=== PATIENT | male | born 1950 | race Hispanic/Latino ===

== ENCOUNTER 2020-07-16 14:30 | Outpatient (CLI) | payer BC | END 2020-07-16 14:31 | disposition home or self-care (01) | LOC: LABBT 14:30 | PROVIDERS: ATTEND Urology | DX: Z01.818 Encounter for other preprocedural examination (principal); N40.1 Benign prostatic hyperplasia with lower urinary tract symptoms; N48.6 Induration penis plastica; N48.89 Other specified disorders of penis; Z12.5 Encounter for screening for malignant neoplasm of prostate; R35.1 Nocturia; N32.3 Diverticulum of bladder; Z20.822 Contact with and (suspected) exposure to COVID-19; I10 Essential (primary) hypertension | CPT/HCPCS: 80048; 81001; 85027; 85610; 85730; 86850; 86900; 86901; 87086; 87635; 93005; 93010; U0003; U0005 ==

== ENCOUNTER 2020-07-21 06:23 | Day surgery (SDC) | payer BC ==
[2020-07-16 15:09] LABS: Bilirubin Neg (Negative); Blood, Urine Negative (Negative); Clarity Clear (Clear); Glucose, Urine (Dipstick) Normal (Negative); Ketone, Urine Negative (Negative); Leukocyte Negative (Negative); Nitrite Negative (Negative); Protein, Urine (Dipstick) Negative (Neg-Trace); Specific Gravity, Urine 1.015 (1.002-1.036); Urobilinogen Normal mg/dL (Less than 2)
[2020-07-16 15:14] LABS: Hemoglobin 15.6 g/dL (13.5-17.5); Mean Corpuscular HGB CONC 33.5 g/dL (32.0-36.0); Mean Corpuscular Hemoglobin 30.7 pg (27.0-33.0); Mean Corpuscular Volume 91.7 fl (81.2-95.1); Mean Platelet Volume 10.4 fl (7.4-10.4); Platelet Count 250 10x3/uL (150-450); RBC Distribution Width 13.1 % (11.5-14.5); Red Blood Cell (RBC) Count 5.08 10x6/uL (4.32-5.72); White Blood Cell (WBC) Count 7.4 10x3/uL (3.5-10.5)
[2020-07-16 15:31] LABS: Bacteria/HPF Rare-Few HPF (None Seen); RBC/HPF 0-3 HPF (0-3); Squamous Epithelial 0-3 HPF (0-3); WBC/HPF 0-3 HPF (0-3)
[2020-07-16 15:33] LABS: PTT 26.2 sec (22.0-33.0); Prothrombin Time 10.8 sec (9.5-12.1)
[2020-07-16 15:39] LABS: Anion Gap 15 mmol/L (10-20); BUN (Urea Nitrogen) 14 mg/dL (8.4-25.7); Calc. Creatinine Clearance 0 mL/min (70-130); Calcium 9.7 mg/dL (7.8-10.44); Carbon Dioxide 26 mmol/L (23-31); Chloride 101 mmol/L (98-107); Glucose 107 mg/dL (80-115); Sodium 137 mmol/L (136-145)
[2020-07-17 04:13] LABS: SARS-CoV-2 PCR by NAA Not Detected (NotDetected)
[2020-07-18 13:13] VITALS: BMI 28.3
[2020-07-21] MEDS ORDERED: Levofloxacin 500 mg/D5W 100 ml Premix Bag ONE (07:30)
[2020-07-21] MEDS ORDERED: Fentanyl 100 MCG/2 ML VIAL ONE ×2 (08:36→12:33)
[2020-07-21] MEDS ORDERED: Iothalamate Meglumine 60% 50 ML VIAL FS ONE (08:40)
[2020-07-21] MEDS ORDERED: Rocuronium Bromide 10 MG/ML (10ML VIAL) ONE (08:52)
[2020-07-21] MEDS ORDERED: Lidocaine 1% PF 5 ML VIAL ONE (08:52)
[2020-07-21] MEDS ORDERED: Glycopyrrolate 0.2 MG/ML 5 ML SYRINGE ONE (08:52)
[2020-07-21] MEDS ORDERED: PHENYLEPHRINE-NS 100 MCG/ML 10 ML SYRINGE ONE (08:52)
[2020-07-21] MEDS ORDERED: PROPOFOL 200 MG/20 ML VIAL ONE (08:52)
[2020-07-21] MEDS ORDERED: Ondansetron PF 4 MG/2 ML Vial ONE (08:52)
[2020-07-21] MEDS ORDERED: Esmolol 100 MG/10 ML VIAL ONE (08:52)
[2020-07-21] MEDS ORDERED: Promethazine HCl 25 MG/ML VIAL SLOW IVP PRN (09:05)
[2020-07-21] MEDS ORDERED: Ondansetron HCl/PF 4 MG/2 ML Vial IVP PRN (09:05)
[2020-07-21] MEDS ORDERED: Promethazine HCl 25 MG/ML VIAL IM PRN (09:05)
[2020-07-21] MEDS ORDERED: B & O ONE (10:12)
[2020-07-21] MEDS ORDERED: Acetaminophen 500 MG TAB PO PRN (11:37)
[2020-07-21] MEDS ORDERED: Zolpidem Tartrate 5 MG TAB PO PRN (11:37)
[2020-07-21] MEDS ORDERED: HYDROcodone/Acetaminophen 5/325 mg Tablet PO PRN ×2 (11:37)
[2020-07-21] MEDS ORDERED: Mag-Al 1200 mg/1200 mg/30 ML UDCUP PO PRN (11:37)
[2020-07-21] MEDS ORDERED: hydrALAZINE 20 MG/ML VIAL SLOW IVP PRN ×2 (11:37)
[2020-07-21] MEDS ORDERED: diphenhydrAMINE 50 MG/ML VIAL IVP PRN (11:37)
[2020-07-21] MEDS ORDERED: Phenazopyridine HCl 97.5 MG TABLET PO PRN (11:37)
[2020-07-21 13:02] LABS: #Eosinphils 0.2 thou/uL (0.0-0.7); #Lymphocytes 1.3 thou/uL (1.20-3.40); #Monocytes 0.5 thou/uL (0.11-0.59); #Neutrophils 6.2 thou/uL (1.40-6.50); %Basophils 0.3 % (0.0-1.0); %Lymphocytes 15.9 % (21.0-51.0); %Monocytes 5.5 % (0.0-10.0); %Neutrophils 76.3 % (42.0-75.0); Hemoglobin 14.9 g/dL (14.0-18.0); Mean Corpuscular HGB CONC 32.7 g/dL (32.0-36.0); Mean Corpuscular Hemoglobin 31.3 pg (27.0-31.0); Mean Corpuscular Volume 95.6 fL (78.0-98.0); Platelet Count 205 thou/uL (130-400); RBC Distribution Width 12.5 % (11.5-14.5); Red Blood Cell (RBC) Count 4.76 mill/uL (4.70-6.10); White Blood Cell (WBC) Count 8.2 thou/uL (4.8-10.8)
[2020-07-21 13:26] LABS: Anion Gap 13 mmol/L (10-20); BUN (Urea Nitrogen) 13 mg/dL (8.4-25.7); Calc. Creatinine Clearance 96 mL/min (70-130); Calcium 8.8 mg/dL (7.8-10.44); Carbon Dioxide 23 mmol/L (23-31); Chloride 104 mmol/L (98-107); Glucose 105 mg/dL (80-115); Potassium 4.5 mmol/L (3.5-5.1); Sodium 135 mmol/L (136-145)
[2020-07-21] MEDS: Sodium Chloride 0.9% 1,000 ML IV SCH (20:45)
[2020-07-21] MEDS: Famotidine/PF 20 mg/2ml Vial SLOW IVP SCH (20:46)
[2020-07-21] MEDS: Docusate 100 MG CAP PO SCH (20:46)
[2020-07-22] MEDS: Sodium Chloride 0.9% 1,000 ML IV SCH (05:55)
[2020-07-22 06:14] LABS: #Eosinphils 0.2 thou/uL (0.0-0.7); #Lymphocytes 1.3 thou/uL (1.20-3.40); #Monocytes 0.9 thou/uL (0.11-0.59); #Neutrophils 6.1 thou/uL (1.40-6.50); %Basophils 0.3 % (0.0-1.0); %Eosinophils 2.4 % (0.0-10.0); %Lymphocytes 14.9 % (21.0-51.0); %Monocytes 10.2 % (0.0-10.0); %Neutrophils 72.1 % (42.0-75.0); Hemoglobin 13.4 g/dL (14.0-18.0); Mean Corpuscular HGB CONC 32.2 g/dL (32.0-36.0); Mean Corpuscular Hemoglobin 30.7 pg (27.0-31.0); Mean Corpuscular Volume 95.4 fL (78.0-98.0); Platelet Count 199 thou/uL (130-400); RBC Distribution Width 12.7 % (11.5-14.5); Red Blood Cell (RBC) Count 4.37 mill/uL (4.70-6.10); White Blood Cell (WBC) Count 8.4 thou/uL (4.8-10.8)
[2020-07-22 06:34] LABS: Anion Gap 11 mmol/L (10-20); BUN (Urea Nitrogen) 11 mg/dL (8.4-25.7); Calc. Creatinine Clearance 95 mL/min (70-130); Calcium 8.4 mg/dL (7.8-10.44); Carbon Dioxide 23 mmol/L (23-31); Chloride 106 mmol/L (98-107); Glucose 99 mg/dL (80-115); Sodium 136 mmol/L (136-145)
[2020-07-22] MEDS ORDERED: cefTRIAXone\\ROCEPHIN 1 GM in Sodium Chloride 0.9% 100 ML IVPB SCH (07:00)
[2020-07-22] MEDS: Famotidine/PF 20 mg/2ml Vial SLOW IVP SCH (08:24)
[2020-07-22] MEDS: Tamsulosin HCl 0.4 MG CAP PO SCH ×2 (08:24→13:25)
[2020-07-22] MEDS: Docusate 100 MG CAP PO SCH (08:24)
[2020-07-22] MEDS ORDERED: Tamsulosin HCl 0.4 MG CAP PO SCH (09:00)
[2020-07-22] MEDS ORDERED: Dutasteride 0.5 MG CAP PO SCH (09:00)
[2020-07-22] MEDS ORDERED: Loratadine/Pseudoephedrine 10/240 mg Tablet PO SCH (09:00)
[2020-07-22] MEDS ORDERED: Lisinopril 10 MG TAB PO SCH (09:00)
[2020-07-22 11:25] VITALS: BP 147/71; TEMP 98
== END 2020-07-22 13:35 | disposition home or self-care (01) ==
LOC: SDC 06:23 → SURG A 11:42 → SDC 07-22 13:35
PROVIDERS: ATTEND Urology
PROC: 0VT08ZZ Resection of Prostate, Via Natural or Artificial Opening Endoscopic (ICD-10-PCS; principal; 2020-07-22)
DX: N40.1 Benign prostatic hyperplasia with lower urinary tract symptoms (principal); R35.1 Nocturia; N32.3 Diverticulum of bladder; I10 Essential (primary) hypertension; Z79.899 Other long term (current) drug therapy
CPT/HCPCS: 36415; 80048; 81001; 85025; 85027; 85610; 85730; 86850; 86900; 86901; 87086; 87635; 88305; J0696; J1956; J2405; J2704; J3010; J3490; Q9961; S0028; U0003; U0005

== ENCOUNTER 2022-03-30 09:23 | Emergency (ER) | payer BC ==
[2022-03-30 10:14] LABS: PTT 29.9 sec (22.9-36.1); Prothrombin Time 13.1 sec (12.0-14.7)
[2022-03-30 10:15] LABS: #Eosinphils 0.3 thou/uL (0.0-0.7); #Monocytes 0.8 thou/uL (0.11-0.59); #Neutrophils 4.8 thou/uL (1.40-6.50); %Basophils 0.3 % (0.0-1.0); %Eosinophils 3.6 % (0.0-10.0); %Lymphocytes 25.6 % (21.0-51.0); %Monocytes 9.8 % (0.0-10.0); %Neutrophils 60.6 % (42.0-75.0); Hemoglobin 16.8 g/dL (14.0-18.0); Mean Corpuscular HGB CONC 33.2 g/dL (32.0-36.0); Mean Corpuscular Hemoglobin 31.5 pg (27.0-31.0); Mean Platelet Volume 7.9 fL (7.4-10.4); Platelet Count 260 10x3/uL (130-400); RBC Distribution Width 12.2 % (11.5-14.5); Red Blood Cell (RBC) Count 5.32 mill/uL (4.70-6.10); White Blood Cell (WBC) Count 7.9 10x3/uL (4.8-10.8)
[2022-03-30 10:21] LABS: ALT (SGPT) 24 U/L (8-55); AST (SGOT) 20 U/L (5-34); Albumin 4.2 g/dL (3.4-4.8); Alkaline Phosphatase 78 U/L (40-110); Anion Gap 12 mmol/L (10-20); BUN (Urea Nitrogen) 15 mg/dL (8.4-25.7); Bilirubin, Total 0.6 mg/dL (0.2-1.2); Calc. Creatinine Clearance 0 mL/min (70-130); Calcium 9.9 mg/dL (7.8-10.44); Carbon Dioxide 28 mmol/L (23-31); Chloride 99 mmol/L (98-107); Estimated GFR 81; Globulin 3.8 g/dL (2.4-3.5); Glucose 117 mg/dL (83-110); Sodium 135 mmol/L (136-145)
[2022-03-30 10:47] LABS: Clarity Hazy (Clear)
[2022-03-30 10:49] LABS: Specific Gravity, Urine 1.005 (1.002-1.036)
[2022-03-30 10:50] LABS: Bilirubin Unable to Interpret (Negative); Blood, Urine Unable to Interpret (Negative); Glucose, Urine (Dipstick) Unable to Interpret mg/dL (Negative); Ketone, Urine Unable to Interpret mg/dL (Negative); Leukocyte Unable to Interpret Leu/uL (Negative); Nitrite Unable to Interpret (Negative); Protein, Urine (Dipstick) Unable to Interpret mg/dL (Neg-Trace); Urobilinogen UNABLE TO INTERPRET mg/dL (Less than 2); pH, Urine 5.7 (5.0-9.0)
[2022-03-30 10:52] LABS: Bacteria/HPF 1+ HPF (None Seen); Squamous Epithelial None Seen HPF (0-3)
== END 2022-03-30 12:01 | disposition home or self-care (01) ==
LOC: ERS 09:23
DX: R31.9 Hematuria, unspecified (principal); N40.1 Benign prostatic hyperplasia with lower urinary tract symptoms; I10 Essential (primary) hypertension; Z79.899 Other long term (current) drug therapy
CPT/HCPCS: 36415; 74176; 80053; 81003; 81015; 85025; 85610; 85730; 87086

== ENCOUNTER 2022-12-07 07:47 | Emergency (ER) | payer BC ==
[2022-12-07 08:42] LABS: #Eosinphils 0.2 thou/uL (0.0-0.7); #Monocytes 0.8 thou/uL (0.11-0.59); #Neutrophils 6.4 thou/uL (1.40-6.50); %Basophils 0.4 % (0.0-1.0); %Eosinophils 2.6 % (0.0-10.0); %Lymphocytes 17.4 % (21.0-51.0); %Monocytes 9.1 % (0.0-10.0); %Neutrophils 70.3 % (42.0-75.0); Hematocrit 45.3 % (42.0-52.0); Hemoglobin 15.2 g/dL (14.0-18.0); Mean Corpuscular HGB CONC 33.6 g/dL (32.0-36.0); Mean Corpuscular Hemoglobin 31.1 pg (27.0-31.0); Mean Corpuscular Volume 92.6 fl (78.0-98.0); Mean Platelet Volume 10.3 fL (7.4-10.4); Platelet Count 242 10x3/uL (130-400); RBC Distribution Width 13.2 % (11.5-14.5); Red Blood Cell (RBC) Count 4.89 mill/uL (4.70-6.10); White Blood Cell (WBC) Count 9.1 10x3/uL (4.8-10.8)
== END 2022-12-07 08:51 | disposition home or self-care (01) ==
LOC: ERS 07:47
DX: L08.9 Local infection of the skin and subcutaneous tissue, unspecified (principal); I10 Essential (primary) hypertension; Z79.899 Other long term (current) drug therapy
CPT/HCPCS: 36415; 85025

== ENCOUNTER 2022-12-08 14:47 | Emergency (ER) | payer BC ==
[2022-12-08] MEDS ORDERED: HYDROcodone/Acetaminophen 10/325 mg Tablet ONE (16:28)
[2022-12-08 18:07] LABS: #Eosinphils 0.1 thou/uL (0.0-0.7); #Neutrophils 7.3 thou/uL (1.40-6.50); %Basophils 0.2 % (0.0-1.0); %Eosinophils 1.1 % (0.0-10.0); %Lymphocytes 14.9 % (21.0-51.0); %Monocytes 9.6 % (0.0-10.0); %Neutrophils 73.8 % (42.0-75.0); Hematocrit 46.1 % (42.0-52.0); Hemoglobin 15.5 g/dL (14.0-18.0); Mean Corpuscular HGB CONC 33.6 g/dL (32.0-36.0); Mean Corpuscular Hemoglobin 31.2 pg (27.0-31.0); Mean Corpuscular Volume 92.8 fl (78.0-98.0); Mean Platelet Volume 10.2 fL (7.4-10.4); Platelet Count 261 10x3/uL (130-400); RBC Distribution Width 13.1 % (11.5-14.5); Red Blood Cell (RBC) Count 4.97 mill/uL (4.70-6.10); White Blood Cell (WBC) Count 9.9 10x3/uL (4.8-10.8)
[2022-12-08 18:23] LABS: ALT (SGPT) 23 U/L (8-55); AST (SGOT) 17 U/L (5-34); Albumin 4.1 g/dL (3.4-4.8); Alkaline Phosphatase 80 U/L (40-110); Anion Gap 12 mmol/L (10-20); BUN (Urea Nitrogen) 14 mg/dL (8.4-25.7); Bilirubin, Total 0.5 mg/dL (0.2-1.2); Calc. Creatinine Clearance 0 mL/min (70-130); Calcium 9.7 mg/dL (7.8-10.44); Carbon Dioxide 24 mmol/L (23-31); Chloride 102 mmol/L (98-107); Estimated GFR 86; Globulin 3.8 g/dL (2.4-3.5); Glucose 108 mg/dL (83-110); Lipase 38 U/L (8-78); Potassium 4.4 mmol/L (3.5-5.1); Protein, Total 7.9 g/dL (5.8-8.1); Sodium 134 mmol/L (136-145)
[2022-12-08] MEDS ORDERED: cefTRIAXone (ROCEPHIN) 1 GM VIAL ONE (18:37)
[2022-12-08] MEDS ORDERED: Lidocaine 1% MPF 2 ML VIAL ONE (18:37)
== END 2022-12-08 19:03 | disposition home or self-care (01) ==
LOC: ERS 14:47
DX: L03.116 Cellulitis of left lower limb (principal); I10 Essential (primary) hypertension; Z79.899 Other long term (current) drug therapy
CPT/HCPCS: 36415; 80053; 83605; 83690; 85025; 96372; 99283; J0696

== ENCOUNTER 2022-12-13 12:31 | Outpatient (CLI) | payer BC ==
[~2022-12-13 12:31] MED LIST: Magnevist 469MG/ML 20 ML VIAL ONE
== END 2022-12-13 12:32 | disposition home or self-care (01) ==
LOC: BICMRI 12:31
PROVIDERS: ATTEND Physician Assistant
DX: M79.672 Pain in left foot (principal); L03.116 Cellulitis of left lower limb; M86.9 Osteomyelitis, unspecified; M00.872 Arthritis due to other bacteria, left ankle and foot
CPT/HCPCS: A9579

== ENCOUNTER 2022-12-13 17:52 | Inpatient (IN) | payer MEDICARE, BC ==
[2022-12-13] MEDS ORDERED: Ketorolac Tromethamine 30 MG/ML VIAL ONE (19:52)
[2022-12-13] MEDS ORDERED: Cefepime 2 GM VIAL ONE (19:52)
[2022-12-13 20:19] LABS: #Eosinphils 0.2 thou/uL (0.0-0.7); #Neutrophils 5.8 thou/uL (1.40-6.50); %Basophils 0.4 % (0.0-1.0); %Eosinophils 2.7 % (0.0-10.0); %Lymphocytes 16.5 % (21.0-51.0); %Monocytes 11.8 % (0.0-10.0); %Neutrophils 68.4 % (42.0-75.0); Hematocrit 43.3 % (42.0-52.0); Hemoglobin 14.6 g/dL (14.0-18.0); Mean Corpuscular HGB CONC 33.7 g/dL (32.0-36.0); Mean Corpuscular Hemoglobin 30.7 pg (27.0-31.0); Mean Platelet Volume 9.7 fL (7.4-10.4); Platelet Count 317 10x3/uL (130-400); RBC Distribution Width 12.5 % (11.5-14.5); Red Blood Cell (RBC) Count 4.76 mill/uL (4.70-6.10); White Blood Cell (WBC) Count 8.4 10x3/uL (4.8-10.8)
[2022-12-13] MEDS ORDERED: Vancomycin 1.5 GRAM/300 ML BAG 1.5 GM in Premix Bag 1 BAG IVPB SCH (20:45)
[2022-12-13 20:48] LABS: ALT (SGPT) 19 U/L (8-55); AST (SGOT) 15 U/L (5-34); Albumin 3.8 g/dL (3.4-4.8); Alkaline Phosphatase 70 U/L (40-110); Anion Gap 14 mmol/L (10-20); BUN (Urea Nitrogen) 16 mg/dL (8.4-25.7); Bilirubin, Total 0.3 mg/dL (0.2-1.2); Calc. Creatinine Clearance 0 mL/min (70-130); Calcium 9.4 mg/dL (7.8-10.44); Carbon Dioxide 24 mmol/L (23-31); Chloride 102 mmol/L (98-107); Estimated GFR 83; Globulin 3.7 g/dL (2.4-3.5); Glucose 102 mg/dL (83-110); Potassium 4.5 mmol/L (3.5-5.1); Protein, Total 7.5 g/dL (5.8-8.1); Sodium 135 mmol/L (136-145)
[2022-12-13] MEDS ORDERED: Senokot S 8.6-50 MG TAB PO PRN (22:25)
[2022-12-13] MEDS ORDERED: Calcium Carbonate 500 MG ChewTAB PO PRN (22:25)
[2022-12-13] MEDS ORDERED: Acetaminophen 325 MG TAB PO PRN (22:25)
[2022-12-13] MEDS ORDERED: Ondansetron ODT 4 MG TAB PO PRN (22:25)
[2022-12-13] MEDS ORDERED: TETANUS, DIPHTHERIA TOX,ADULT (TDVAX) 0.5 ML VIAL IM ONE (22:27)
[2022-12-13 22:51] VITALS: BMI 28.3
[2022-12-14 05:57] LABS: #Eosinphils 0.2 thou/uL (0.0-0.7); #Monocytes 0.8 thou/uL (0.11-0.59); #Neutrophils 5.3 thou/uL (1.40-6.50); %Basophils 0.5 % (0.0-1.0); %Eosinophils 3.2 % (0.0-10.0); %Lymphocytes 15.4 % (21.0-51.0); %Monocytes 10.8 % (0.0-10.0); %Neutrophils 69.7 % (42.0-75.0); Hematocrit 40.8 % (42.0-52.0); Hemoglobin 13.7 g/dL (14.0-18.0); Mean Corpuscular HGB CONC 33.6 g/dL (32.0-36.0); Mean Corpuscular Hemoglobin 30.6 pg (27.0-31.0); Mean Corpuscular Volume 91.3 fl (78.0-98.0); Mean Platelet Volume 9.9 fL (7.4-10.4); Platelet Count 282 10x3/uL (130-400); RBC Distribution Width 12.7 % (11.5-14.5); Red Blood Cell (RBC) Count 4.47 mill/uL (4.70-6.10); White Blood Cell (WBC) Count 7.6 10x3/uL (4.8-10.8)
[2022-12-14] MEDS: HYDROcodone/Acetaminophen 5/325 mg Tablet PO PRN ×4 (06:12→19:50)
[2022-12-14 06:21] LABS: Anion Gap 10 mmol/L (10-20); BUN (Urea Nitrogen) 14 mg/dL (8.4-25.7); Calc. Creatinine Clearance 95 mL/min (70-130); Calcium 9.1 mg/dL (7.8-10.44); Carbon Dioxide 25 mmol/L (23-31); Chloride 105 mmol/L (98-107); Estimated GFR 93; Glucose 97 mg/dL (83-110); Potassium 4.4 mmol/L (3.5-5.1); Sodium 136 mmol/L (136-145)
[2022-12-14] MEDS ORDERED: Ondansetron PF 4 MG/2 ML Vial IVP PRN (08:11)
[2022-12-14] MEDS ORDERED: Non-Formulary Item 1 EACH (Omeprazole [Omeprazole] 20 MG Capsule.Dr) PO SCH (09:00)
[2022-12-14] MEDS ORDERED: Famotidine 20 MG TAB PO SCH (09:00)
[2022-12-14] MEDS: Lisinopril 10 MG TAB PO SCH (09:43)
[2022-12-14] MEDS ORDERED: VANCOMYCIN 1.75 GM/500 ML BAG 1.75 GM in Premix Bag 1 BAG IVPB SCH (18:00)
[2022-12-15 05:17] LABS: Hematocrit 39.8 % (42.0-52.0); Hemoglobin 13.5 g/dL (14.0-18.0); Mean Corpuscular HGB CONC 33.9 g/dL (32.0-36.0); Mean Corpuscular Hemoglobin 30.9 pg (27.0-31.0); Mean Corpuscular Volume 91.1 fl (78.0-98.0); Mean Platelet Volume 9.5 fL (7.4-10.4); Platelet Count 300 10x3/uL (130-400); RBC Distribution Width 12.3 % (11.5-14.5); Red Blood Cell (RBC) Count 4.37 mill/uL (4.70-6.10); White Blood Cell (WBC) Count 7.2 10x3/uL (4.8-10.8)
[2022-12-15 05:40] LABS: Anion Gap 11 mmol/L (10-20); BUN (Urea Nitrogen) 15 mg/dL (8.4-25.7); Calc. Creatinine Clearance 95 mL/min (70-130); Calcium 8.9 mg/dL (7.8-10.44); Carbon Dioxide 24 mmol/L (23-31); Chloride 102 mmol/L (98-107); Estimated GFR 93; Glucose 98 mg/dL (83-110); Potassium 4.2 mmol/L (3.5-5.1); Sodium 133 mmol/L (136-145)
[2022-12-15] MEDS: Dutasteride 0.5 MG CAP PO SCH (08:03)
[2022-12-15] MEDS: HYDROcodone/Acetaminophen 5/325 mg Tablet PO PRN ×3 (08:04→23:06)
[2022-12-15] MEDS: Lisinopril 10 MG TAB PO SCH (09:00)
[2022-12-15] MEDS: cefTRIAXone\\ROCEPHIN 2 GM in Sodium Chloride 0.9% 100 ML IVPB SCH (23:04)
[2022-12-16 05:28] LABS: #Eosinphils 0.3 thou/uL (0.0-0.7); #Monocytes 0.9 thou/uL (0.11-0.59); #Neutrophils 4.5 thou/uL (1.40-6.50); %Basophils 0.5 % (0.0-1.0); %Eosinophils 4.2 % (0.0-10.0); %Lymphocytes 23.9 % (21.0-51.0); %Monocytes 11.3 % (0.0-10.0); %Neutrophils 59.7 % (42.0-75.0); Hematocrit 41.8 % (42.0-52.0); Mean Corpuscular HGB CONC 33.5 g/dL (32.0-36.0); Mean Corpuscular Hemoglobin 30.7 pg (27.0-31.0); Mean Corpuscular Volume 91.7 fl (78.0-98.0); Mean Platelet Volume 9.6 fL (7.4-10.4); Platelet Count 306 10x3/uL (130-400); RBC Distribution Width 12.4 % (11.5-14.5); Red Blood Cell (RBC) Count 4.56 mill/uL (4.70-6.10); White Blood Cell (WBC) Count 7.6 10x3/uL (4.8-10.8)
[2022-12-16 05:43] LABS: Vancomycin, Trough 3.5 ug/mL
[2022-12-16 05:45] LABS: Anion Gap 10 mmol/L (10-20); BUN (Urea Nitrogen) 18 mg/dL (8.4-25.7); Calc. Creatinine Clearance 87 mL/min (70-130); Calcium 9.1 mg/dL (7.8-10.44); Carbon Dioxide 27 mmol/L (23-31); Chloride 102 mmol/L (98-107); Estimated GFR 91; Glucose 98 mg/dL (83-110); Potassium 4.3 mmol/L (3.5-5.1); Sodium 135 mmol/L (136-145)
[2022-12-16] MEDS: Vancomycin 1 GM in Premix Bag 1 BAG IVPB SCH ×2 (06:27→18:24)
[2022-12-16] MEDS: HYDROcodone/Acetaminophen 5/325 mg Tablet PO PRN ×2 (06:34→14:47)
[2022-12-16] MEDS ORDERED: metroNIDAZOLE 500 MG TAB PO SCH (07:00)
[2022-12-16] MEDS ORDERED: Vancomycin HCl 750 MG in Sodium Chloride 0.9% 250 ML 250 ML IVPB SCH (08:00)
[2022-12-16] MEDS: Dutasteride 0.5 MG CAP PO SCH (09:32)
[2022-12-16] MEDS: metroNIDAZOLE 500 MG TAB PO SCH ×3 (09:32→20:11)
[2022-12-16] MEDS: Lisinopril 10 MG TAB PO SCH (09:33)
[2022-12-16] MEDS: Losartan 25 MG TAB PO SCH (10:49)
[2022-12-16] MEDS: cefTRIAXone\\ROCEPHIN 2 GM in Sodium Chloride 0.9% 100 ML IVPB SCH (23:39)
[2022-12-17] MEDS: HYDROcodone/Acetaminophen 5/325 mg Tablet PO PRN ×3 (00:19→14:58)
[2022-12-17 05:55] LABS: #Eosinphils 0.4 thou/uL (0.0-0.7); #Monocytes 0.9 thou/uL (0.11-0.59); #Neutrophils 4.6 thou/uL (1.40-6.50); %Basophils 0.4 % (0.0-1.0); %Lymphocytes 22.3 % (21.0-51.0); %Monocytes 11.3 % (0.0-10.0); %Neutrophils 60.9 % (42.0-75.0); Hematocrit 40.3 % (42.0-52.0); Hemoglobin 13.6 g/dL (14.0-18.0); Mean Corpuscular HGB CONC 33.7 g/dL (32.0-36.0); Mean Corpuscular Hemoglobin 30.6 pg (27.0-31.0); Mean Corpuscular Volume 90.8 fl (78.0-98.0); Mean Platelet Volume 9.7 fL (7.4-10.4); Platelet Count 320 10x3/uL (130-400); RBC Distribution Width 12.3 % (11.5-14.5); Red Blood Cell (RBC) Count 4.44 mill/uL (4.70-6.10); White Blood Cell (WBC) Count 7.6 10x3/uL (4.8-10.8)
[2022-12-17] MEDS: Vancomycin 1 GM in Premix Bag 1 BAG IVPB SCH (06:01)
[2022-12-17 06:31] LABS: Anion Gap 12 mmol/L (10-20); BUN (Urea Nitrogen) 12 mg/dL (8.4-25.7); Calc. Creatinine Clearance 85 mL/min (70-130); Calcium 9.2 mg/dL (7.8-10.44); Carbon Dioxide 27 mmol/L (23-31); Chloride 100 mmol/L (98-107); Estimated GFR 90; Glucose 92 mg/dL (83-110); Potassium 3.9 mmol/L (3.5-5.1); Sodium 135 mmol/L (136-145)
[2022-12-17] MEDS: Dutasteride 0.5 MG CAP PO SCH (08:59)
[2022-12-17] MEDS: Losartan 25 MG TAB PO SCH (09:04)
[2022-12-17] MEDS: metroNIDAZOLE 500 MG TAB PO SCH ×3 (09:04→20:17)
[2022-12-17] MEDS: Lisinopril 10 MG TAB PO SCH (09:04)
[2022-12-17] MEDS ORDERED: Vancomycin 1 GM in Premix Bag 1 BAG IVPB SCH (13:15)
[2022-12-17 16:10] LABS: Vancomycin, Trough 12.4 ug/mL
[2022-12-17] MEDS ORDERED: Vancomycin HCl 2.5 GM in Sodium Chloride 0.9% 500 ML IVPB SCH (20:00)
[2022-12-17] MEDS: cefTRIAXone\\ROCEPHIN 2 GM in Sodium Chloride 0.9% 100 ML IVPB SCH (20:20)
[2022-12-18] MEDS: HYDROcodone/Acetaminophen 5/325 mg Tablet PO PRN (06:53)
[2022-12-18] MEDS: metroNIDAZOLE 500 MG TAB PO SCH ×3 (08:56→20:02)
[2022-12-18] MEDS: Losartan 25 MG TAB PO SCH (08:56)
[2022-12-18] MEDS: Dutasteride 0.5 MG CAP PO SCH (08:56)
[2022-12-18] MEDS ORDERED: Vancomycin HCl 2.5 GM in Sodium Chloride 0.9% 500 ML IVPB SCH (11:12)
[2022-12-18 20:25] VITALS: BP 169/78; TEMP 98.3
[2022-12-18] MEDS ORDERED: cefTRIAXone\\ROCEPHIN 2 GM in Sodium Chloride 0.9% 100 ML IVPB SCH (23:00)
== END 2022-12-18 20:45 | disposition home or self-care (01) | DRG 540 ==
LOC: ERS 17:52 → SURG A 21:03 → OBSVTOIN 22:25
PROVIDERS: ADMIT Student in an Organized Health Care Education/Training Program; ATTEND Internal Medicine
PROC: 02HV33Z Insertion of Infusion Device into Superior Vena Cava, Percutaneous Approach (ICD-10-PCS; principal; 2022-12-17)
PROC: B5181ZA Fluoroscopy of Superior Vena Cava using Low Osmolar Contrast, Guidance (ICD-10-PCS; 2022-12-17)
PROC: B548ZZA Ultrasonography of Superior Vena Cava, Guidance (ICD-10-PCS; 2022-12-17)
DX: M86.172 Other acute osteomyelitis, left ankle and foot (principal); L03.116 Cellulitis of left lower limb; N40.0 Benign prostatic hyperplasia without lower urinary tract symptoms; I10 Essential (primary) hypertension; Z98.890 Other specified postprocedural states; Z82.49 Family history of ischemic heart disease and other diseases of the circulatory system; Z79.899 Other long term (current) drug therapy
CPT/HCPCS: 36415; 36569; 80048; 80053; 80202; 83605; 85025; 85027; 86140; 87040; 90714; 96365; 96366; 96367; 96375; G0378; J0692; J0696; J1885; J3370; J3370-JW; J3490; J7030; J7050

== ENCOUNTER 2023-01-31 14:31 | Outpatient (CLI) | payer BC | END 2023-01-31 14:32 | disposition home or self-care (01) | LOC: BICMRI 14:31 | PROVIDERS: ATTEND Student in an Organized Health Care Education/Training Program | DX: M86.9 Osteomyelitis, unspecified (principal); M00.9 Pyogenic arthritis, unspecified; S93.302A Unspecified subluxation of left foot, initial encounter; M85.862 Other specified disorders of bone density and structure, left lower leg; S86.812A Strain of other muscle(s) and tendon(s) at lower leg level, left leg, initial encounter ==